=== PATIENT | male | born 1945 | race Caucasian/White ===

== ENCOUNTER → 2023-08-29 06:45 | Outpatient (REF) | payer MEDICARE, SELFPAY | LOC: RAD 06:45 | PROVIDERS: ATTENDING PHYSICIAN Family Medicine; REFERRING PHYSICIAN Chiropractor | DX: R10.11 Right upper quadrant pain (principal) | CPT/HCPCS: 76700 ==

== ENCOUNTER 2024-08-21 06:22 | Day surgery (SDC) | payer MEDICARE, SELFPAY | END 2024-08-21 09:48 | disposition home or self-care (01) | LOC: GI 06:22 | PROVIDERS: ATTENDING PHYSICIAN Specialist | DX: Z12.11 Encounter for screening for malignant neoplasm of colon (principal); K57.30 Diverticulosis of large intestine without perforation or abscess without bleeding; D17.5 Benign lipomatous neoplasm of intra-abdominal organs; K64.8 Other hemorrhoids; R10.11 Right upper quadrant pain; K22.89 Other specified disease of esophagus; K20.80 Other esophagitis without bleeding; D12.2 Benign neoplasm of ascending colon; Z80.0 Family history of malignant neoplasm of digestive organs; Z86.0101 Personal history of adenomatous and serrated colon polyps | CPT/HCPCS: 45385; 43239; 88305; 88342 ==

== ENCOUNTER → 2024-11-01 09:17 | Outpatient (REF) | payer MEDICARE, SELFPAY | LOC: RAD 09:17 | PROVIDERS: ATTENDING PHYSICIAN Family Medicine | DX: M25.561 Pain in right knee (principal); M25.562 Pain in left knee; M19.90 Unspecified osteoarthritis, unspecified site | CPT/HCPCS: 73565 ==